=== PATIENT | male | born 1960 | race Caucasian/White ===

== ENCOUNTER 2025-04-05 16:40 | Inpatient (IN) | payer MEDICAID ==
[~2025-04-05] VITALS: Ht 167.6 cm; Wt 84.0 kg
[~2025-04-05 16:40] MED LIST: AMLO-257 PO; ASPI-1444 PO; BUSP10TA23 PO; CITA-144 PO; DULO60CA73 PO; GABA-1181 PO; LEVO50 PO; LISI-894 PO; METF-1211 PO; TAMS0.4C94 PO; TRAZ-257 PO
[2025-04-05 18:13] LABS: PLATELET COUNT (AUTO) 256 K/uL (150-450); RED BLOOD CELL COUNT(AUTO) 4.53 MIL/uL (4.50-5.90); RED CELL DISTRIBUTION WIDTH 13.3 % (11.5-14.5); WHITE BLOOD COUNT (AUTO) 9.1 K/uL (4.5-11.0)
[2025-04-05 18:20] LABS: COVID AG,FIA SOURCE NASAL SWAB
[2025-04-05 18:23] LABS: CALCIUM, TOTAL 8.8 mg/dL (8.8-10.5); CREATININE 0.85 mg/dL (0.60-1.30); GLOMERULAR FILTR. RATE CALC > 60 mL/min (>60); GLUCOSE,RANDOM 97 mg/dL (70-110); SODIUM SERUM 138 mmol/L (136-145); UREA NITROGEN, BLOOD 13 mg/dL (7-18)
[2025-04-05 18:50] LABS: SARS-COV2 (COVID) ANTIGEN,FIA Negative (Negative)
[2025-04-05 19:44] LABS: APPEARANCE,URINE CLEAR (CLEAR); GLUCOSE, URINE (UA) NEGATIVE (NEGATIVE); LEUKOCYTE ESTERASE ,URINE NEGATIVE (NEGATIVE); NITRATE,URINE NEGATIVE (NEGATIVE); OCCULT BLOOD,URINE NEGATIVE (NEGATIVE); PH,URINE DRUG SCREEN 6.5 (5.0-8.0); SPECIFIC GRAVITIY, URINE 1.008 (1.003-1.030)
[2025-04-05 19:51] LABS: ALCOHOL, URINE DRUG SCREEN NEGATIVE (NEGATIVE); AMPHET/METH SCREEN,URINE NEGATIVE (NEGATIVE); BARBITURATE SCREEN, URINE NEGATIVE (NEGATIVE); CANNABINOID SCREEN,URINE POSITIVE (NEGATIVE); COCAINE SCREEN,URINE NEGATIVE (NEGATIVE); METHADONE SCREEN, URINE NEGATIVE (NEGATIVE)
[2025-04-05] MEDS: ZOLPIDEM TARTRATE 10 MG TABLET PO PRN (23:44)
[2025-04-06] VITALS (7 sets, daily range): BP systolic 136–155; BP diastolic 80–98; PULSE 62–99; RESP 15–18; TEMP 98.4–99; O2SAT 97–98
[2025-04-06 06:50] LABS: GLUCOMETER DEV NAME(LOC) BV2S.; GLUCOSE,POINT OF CARE 133 MG/DL (70-110)
[2025-04-06] MEDS ORDERED: DEXTROSE 50%-WATER 25 GM/50 ML SYRINGE IVP PRN (09:00)
[2025-04-06] MEDS ORDERED: OMEPRAZOLE 20 MG CAPSULE PO PRN (09:00)
[2025-04-06] MEDS ORDERED: PETROLATUM,WHITE 28 GM JELLY TP PRN (09:00)
[2025-04-06] MEDS ORDERED: LOPERAMIDE HCL 2 MG CAPSULE PO PRN (09:00)
[2025-04-06] MEDS ORDERED: ALBUTEROL SULFATE HFA 90 MCG/PUFF 8 GM INHALER IH PRN (09:00)
[2025-04-06] MEDS ORDERED: DOCUSATE SODIUM 100 MG CAPSULE PO PRN (09:00)
[2025-04-06] MEDS ORDERED: MAG HYDROX/ALUMINUM HYD/SIMETH ES 30 ML SUSPENSION UDCUP PO PRN (09:00)
[2025-04-06] MEDS ORDERED: BACITRACIN 28 GM OINTMENT TP PRN (09:00)
[2025-04-06] MEDS ORDERED: MAGNESIUM HYDROXIDE SUSPENSION 30 ML UDCUP PO PRN (09:00)
[2025-04-06] MEDS ORDERED: ONDANSETRON 4 MG TABLET PO PRN (09:00)
[2025-04-06 09:40] LABS: CHOL/HDL RATIO 3.2 (4.2-7.3); LDL CHOL (CALC.) 95.0 mg/dL (0-130)
[2025-04-06] MEDS: TAMSULOSIN HCL 0.4 MG CAPSULE PO SCH (11:04)
[2025-04-06] MEDS: IBUPROFEN 600 MG TABLET PO PRN (11:10)
[2025-04-06 11:51] LABS: GLUCOMETER DEV NAME(LOC) BV2S.; GLUCOSE,POINT OF CARE 118 MG/DL (70-110)
[2025-04-06 17:05] LABS: GLUCOMETER DEV NAME(LOC) BV2S.; GLUCOSE,POINT OF CARE 128 MG/DL (70-110)
[2025-04-06] MEDS: HYDROCODONE/ACETAMINOPHEN 10-325 MG TABLET PO PRN (17:35)
[2025-04-06 20:50] LABS: GLUCOMETER DEV NAME(LOC) BV2S.; GLUCOSE,POINT OF CARE 113 MG/DL (70-110)
[2025-04-06] MEDS: DULoxetine HCL 60 MG CAPSULE PO SCH (21:03)
[2025-04-06] MEDS: ATORVASTATIN CALCIUM 40 MG TABLET PO SCH (21:03)
[2025-04-06] MEDS: TraZODone HCL 150 MG TABLET PO SCH (21:03)
[2025-04-07 05:55] LABS: GLUCOMETER DEV NAME(LOC) BV2S.; GLUCOSE,POINT OF CARE 134 MG/DL (70-110)
[2025-04-07] MEDS: OMEPRAZOLE 20 MG CAPSULE PO SCH (08:32)
[2025-04-07 08:39] VITALS: BP 132/74; PULSE 74; RESP 17; TEMP 97.4; O2SAT 100
[2025-04-07 09:04] VITALS: RESP 18
[2025-04-07 10:04] VITALS: RESP 17
[2025-04-07] MEDS: BENZOCAINE/MENTHOL [CEPACOL] LOZENGE PO PRN (16:15)
[2025-04-07 18:23] VITALS: BP 140/80; PULSE 85; RESP 18
[2025-04-07 19:23] VITALS: RESP 17
[2025-04-07 20:00] VITALS: BP 122/77; PULSE 82; RESP 18; TEMP 98.4; O2SAT 99
[2025-04-07 20:41] LABS: GLUCOMETER DEV NAME(LOC) BV2S.; GLUCOSE,POINT OF CARE 119 MG/DL (70-110)
[2025-04-08 05:56] LABS: GLUCOMETER DEV NAME(LOC) BV2S.; GLUCOSE,POINT OF CARE 123 MG/DL (70-110)
[2025-04-08 08:00] VITALS: BP 139/92; PULSE 95; RESP 18; TEMP 98.3; O2SAT 98
[2025-04-08 08:10] VITALS: BP 139/92; PULSE 92; RESP 18; TEMP 98.3; O2SAT 98
[2025-04-08] MEDS: ACETAMINOPHEN 325 MG TABLET PO PRN (08:54)
[2025-04-08 08:56] VITALS: BP 136/88; PULSE 89; RESP 16; TEMP 98.6; O2SAT 99
[2025-04-08 23:00] VITALS: BP 153/99; PULSE 84; RESP 18; TEMP 97; O2SAT 97
[2025-04-08 23:21] LABS: GLUCOMETER DEV NAME(LOC) ERT.7; GLUCOSE,POINT OF CARE 109 MG/DL (70-110)
[2025-04-09 09:55] VITALS: BP 152/92; PULSE 108; RESP 18; TEMP 97.7; O2SAT 98
[2025-04-09 10:55] VITALS: BP 147/89; PULSE 93; RESP 18; TEMP 97.3; O2SAT 99
[2025-04-09 15:51] LABS: GLUCOMETER DEV NAME(LOC) 3EX.2; GLUCOSE,POINT OF CARE 102 MG/DL (70-110)
[2025-04-09 18:54] VITALS: BP 134/86; PULSE 85; RESP 18; TEMP 97.6; O2SAT 99
[2025-04-09 20:25] LABS: GLUCOMETER DEV NAME(LOC) 3EX.2; GLUCOSE,POINT OF CARE 136 MG/DL (70-110)
[2025-04-09 22:10] VITALS: BP 148/92; PULSE 98; RESP 20; TEMP 97.7; O2SAT 98
[2025-04-10 10:03] VITALS: BP 155/97; PULSE 90; RESP 18; TEMP 98.1; O2SAT 99
[2025-04-10 10:29] VITALS: BP 155/97; PULSE 90; RESP 18; TEMP 98.1; O2SAT 99
[2025-04-10 11:29] VITALS: BP 147/88; PULSE 83; RESP 19; TEMP 98.3; O2SAT 98
[2025-04-10 11:45] LABS: GLUCOMETER DEV NAME(LOC) 3EX.2; GLUCOSE,POINT OF CARE 118 MG/DL (70-110)
[2025-04-10 18:53] VITALS: BP 136/84; PULSE 82; RESP 18; TEMP 97.6; O2SAT 99
[2025-04-10 19:53] VITALS: RESP 18
[2025-04-10 20:27] VITALS: BP 141/90; PULSE 92; RESP 18; TEMP 98.7; TEMP 99.1; O2SAT 97
[2025-04-10 20:46] LABS: GLUCOMETER DEV NAME(LOC) 3EX.2; GLUCOSE,POINT OF CARE 128 MG/DL (70-110)
[2025-04-10] MEDS: INSULIN LISPRO 100 UNITS/ML SQ PRN (21:12)
[2025-04-11 06:05] LABS: GLUCOMETER DEV NAME(LOC) 3EX.2; GLUCOSE,POINT OF CARE 111 MG/DL (70-110)
[2025-04-11 11:03] VITALS: BP 161/94; PULSE 84; RESP 18; TEMP 98.2
[2025-04-11 11:55] LABS: GLUCOMETER DEV NAME(LOC) 3EX.2; GLUCOSE,POINT OF CARE 123 MG/DL (70-110)
[2025-04-11 16:31] LABS: GLUCOMETER DEV NAME(LOC) 3EX.2; GLUCOSE,POINT OF CARE 113 MG/DL (70-110)
[2025-04-11 20:00] VITALS: BP 160/67; PULSE 97; RESP 18; TEMP 98; O2SAT 98
[2025-04-11 20:20] VITALS: BP 158/70; PULSE 92; RESP 18; TEMP 98.1; O2SAT 97
[2025-04-11 21:56] LABS: GLUCOMETER DEV NAME(LOC) 3EX.2; GLUCOSE,POINT OF CARE 140 MG/DL (70-110)
[2025-04-12 07:25] LABS: GLUCOMETER DEV NAME(LOC) 3EX.2; GLUCOSE,POINT OF CARE 114 MG/DL (70-110)
[2025-04-12 09:08] VITALS: BP 138/90; PULSE 71; RESP 17; TEMP 97.8; O2SAT 100
[2025-04-12 10:08] VITALS: BP 136/84; PULSE 72; RESP 18; TEMP 97.9; O2SAT 99
[2025-04-12 12:01] LABS: GLUCOMETER DEV NAME(LOC) 3E.I 2; GLUCOSE,POINT OF CARE 110 MG/DL (70-110)
[2025-04-12] MEDS ORDERED: DULO60CA73 PO (15:35)
[2025-04-12] MEDS ORDERED: TRAZ150T80 PO (15:35)
[2025-04-12] MEDS ORDERED: NIFE-141 PO (15:43)
[2025-04-12] MEDS ORDERED: ATOR40TA28 PO (15:43)
[2025-04-12] MEDS ORDERED: TAMS0.4C94 PO (15:44)
[2025-04-12] MEDS ORDERED: OMEP-148 PO (15:44)
== END 2025-04-12 18:35 | disposition home or self-care (01) | DRG 751 ==
LOC: EMS 16:43 → EDBD 16:43 → B2S 22:29 → 3EI 04-08 09:32
PROVIDERS: ADMIT Psychiatry & Neurology Psychiatry; ATTEND Psychiatry & Neurology Psychiatry
DX: F32.9 Major depressive disorder, single episode, unspecified (principal); E11.9 Type 2 diabetes mellitus without complications; R45.851 Suicidal ideations; I10 Essential (primary) hypertension; E78.5 Hyperlipidemia, unspecified; Z20.822 Contact with and (suspected) exposure to COVID-19; K21.9 Gastro-esophageal reflux disease without esophagitis; N40.0 Benign prostatic hyperplasia without lower urinary tract symptoms; G47.00 Insomnia, unspecified; F41.9 Anxiety disorder, unspecified; K59.00 Constipation, unspecified; F12.90 Cannabis use, unspecified, uncomplicated; I25.2 Old myocardial infarction
CPT/HCPCS: 80048; 80061; 80307; 81003; 82962; 83036; 85025; G0480

== ENCOUNTER → 2025-04-08 | Emergency (ER) | payer MEDICAID ==
[~2025-04-08] VITALS: Ht 167.6 cm; Wt 79.5 kg
[~2025-04-08] MED LIST changes: +ATOR40TA28 PO; +NIFE-141 PO; +OMEP-148 PO; +OMEPRAZOLE 20 MG CAPSULE PO ONE; +TAMSULOSIN HCL 0.4 MG CAPSULE PO ONE; +TRAZ150T80 PO
[2025-04-08 09:51] VITALS: TEMP 98.4
[2025-04-08 10:24] LABS: PLATELET COUNT (AUTO) 241 K/uL (150-450); RED BLOOD CELL COUNT(AUTO) 4.56 MIL/uL (4.50-5.90); RED CELL DISTRIBUTION WIDTH 13.1 % (11.5-14.5); WHITE BLOOD COUNT (AUTO) 8.4 K/uL (4.5-11.0)
[2025-04-08 10:32] LABS: CALCIUM, TOTAL 8.8 mg/dL (8.8-10.5); CREATININE 0.84 mg/dL (0.60-1.30); GLOMERULAR FILTR. RATE CALC > 60 mL/min (>60); GLUCOSE,RANDOM 116 mg/dL (70-110); SODIUM SERUM 135 mmol/L (136-145); UREA NITROGEN, BLOOD 16 mg/dL (7-18)
[2025-04-08 10:41] LABS: TROPONIN I-HIGH SENSITIVITY 11 ng/L (<76)
[2025-04-08] MEDS: KETOROLAC TROMETHAMINE 60 MG/2 ML VIAL IM ONE (11:45)
[2025-04-08] MEDS: HYDROCODONE/ACETAMINOPHEN 5-325 MG TABLET PO ONE (16:37)
[2025-04-08] MEDS: DULoxetine HCL 60 MG CAPSULE PO ONE (22:06)
[2025-04-08] MEDS: ATORVASTATIN CALCIUM 40 MG TABLET PO ONE (22:06)
[2025-04-08 22:07] VITALS: BP 152/96; PULSE 62; RESP 14; O2SAT 94
== END | disposition still patient (30) ==
LOC: EMS 09:36
DX: F32.9 Major depressive disorder, single episode, unspecified (principal); R51.9 Headache, unspecified; E11.9 Type 2 diabetes mellitus without complications; R07.89 Other chest pain; R06.02 Shortness of breath; Z88.5 Allergy status to narcotic agent
CPT/HCPCS: 99285; 70450; 71045; 80048; 82962; 83880; 84484; 85025; 36415; 93005; 96372; J1885